=== PATIENT | female | born 1955 | race Caucasian/White ===

== ENCOUNTER 2021-02-08 16:25 | Emergency (ER) | payer MEDICARE ==
--- NOTE | 2021-02-08 17:47 | ED Physician Documentation ---
PD HPI HEENT - Stated complaint Stated Complaint: COUGH,SINUS PX,[place],FATIGUE - Chief complaint Chief Complaint: Resp - History obtained from History obtained from: Patient, Family - History of Present Illness Timing - onset: How many days ago (10) Timing - duration: Days (10) Timing - details: Abrupt onset, Still present Location: Sinuses, Other (right side of head) Improves: Medication Associated symptoms: Congestion, Rhinorrhea, Headache, Cough. No: Fever Similar symptoms before: Diagnosis (sinusitis) Recently seen: Not recently seen - Additional information Additional information: 65-year-old female has been traveling with her developed a URI 10 days ago her developed at the same time his symptoms resolved hers got somewhat better and then worse and she has had persistence of symptoms she is having now pain to the whole right side of her head sinus congestion a mild cough her sore throat that she initially had is resolved.She has had sinusitis previously and feels this is similar. Review of Systems Constitutional: reports: Fatigue. denies: Fever Eyes: denies: Decreased vision Ears: reports: Ear pain Nose: reports: Rhinorrhea / runny nose, Congestion, Sinus pressure / pain Throat: reports: Sore throat Cardiac: denies: Chest pain / pressure, Palpitations Respiratory: reports: Cough. denies: Dyspnea GI: denies: Abdominal Pain, Nausea, Vomiting PD PAST MEDICAL HISTORY - Present Medications Home Medications: Ambulatory Orders Medication Instructions Recorded Confirmed Amox/Clav 875/125 [Augmentin] 1 each PO Q12H #20 tablet 02/08/21 - Allergies Allergies/Adverse Reactions: Allergies Allergy/AdvReac Type Severity Reaction Status Date / Time Sulfa (Sulfonamide Allergy Rash Verified 02/08/21 16:53 Antibiotics) PD ED PE NORMAL - Vitals Vital signs reviewed: Yes (Hypertensive diastolic) - General General: Alert and oriented X 3, No acute distress, Well developed/nourished - HEENT HEENT: Atraumatic, PERRL, EOMI, Ears normal (Minimal erythema along the umbo on the right side only), Moist mucous membranes, Pharynx benign, Other (Minimal point tenderness to the right maxillary sinus.) - Neck Neck: Supple, no meningeal sign, No bony TTP - Cardiac Cardiac: RRR, No murmur - Respiratory Respiratory: No respiratory distress, Clear bilaterally - Abdomen Abdomen: Soft, Non tender - Back Back: No CVA TTP, No spinal TTP - Derm Derm: Normal color, Warm and dry, No rash - Extremities Extremities: No deformity, No edema - Neuro Neuro: Alert and oriented X 3, 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, No motor deficit, No sensory deficit, Normal speech Eye Opening: Spontaneous Motor: Obeys Commands Verbal: Oriented GCS Score: 15 - Psych Psych: Normal mood, Normal affect Results - Vitals Vitals: Vital Signs - 24 hr 02/08/21 02/08/21 16:48 18:27 Temperature 37.3 C 36.6 C Heart Rate 71 72 Respiratory 16 16 Rate Blood Pressure 119/95 H 129/98 H O2 Saturation 97 98 Oxygen O2 Source Room air PD MEDICAL DECISION MAKING - ED course Complexity details: considered differential, d/w patient, d/w family ED course: 65-year-old female with a bimodal illness has signs and symptoms consistent with acute maxillary sinusitis and she is requesting treatment. She is administered dexamethasone we will place her on a course of Augmentin. Departure - Departure Disposition: 01 Home, Self Care Condition: Stable Instructions: ED Sinusitis Abx Tx Follow-Up: Your, doctor [Other] Prescriptions: Amox/Clav 875/125 [Augmentin] 1 each PO Q12H #20 tablet Discharge Date/Time: 02/08/21 18:35
[2021-02-08] MEDS ORDERED: DEXAMETHASONE 10 MG/ML VIAL PO STA (18:02)
[2021-02-08] MEDS ORDERED: CHERRY SYRUP 10 ML UDC PO ONE (18:02)
[2021-02-08 18:28] VITALS: BP 129/98
== END 2021-02-08 18:35 | disposition home or self-care (01) ==
LOC: ED 16:25
DX: J01.00 Acute maxillary sinusitis, unspecified (principal)
CPT/HCPCS: 99282; 99283; A9270